=== PATIENT | female | born 1995 | race Caucasian/White ===

== ENCOUNTER 2021-08-05 11:48 | Emergency (ER) | payer OTHER, SELFPAY ==
[2021-08-05 12:08] VITALS: BP 116/66; PULSE 108; RESP 16; TEMP 36.7; O2SAT 100
--- NOTE | 2021-08-05 12:38 | ED.GENADULT ---
HPI - General Adult General Chief complaint: Upper Respiratory Infection Stated complaint: COUGH/CONGESTION/SORE THROAT Time Seen by Provider: 08/05/21 12:38 Source: patient Mode of arrival: ambulatory Limitations: no limitations History of Present Illness HPI narrative: 26-year-old female patient presents to the [facility] with complaints of cough, congestion, sore throat and fevers that started about 3 to 4 days ago. Patient is fully vaccinated against influenza and COVID. Patient states she has been trying to take some cjiq-yei-zaznegi medication however this morning she started coughing up some yellow sputum and decided to come in and be checked out. Denies any nausea, vomiting or diarrhea. Denies any chest pain or shortness of breath. Related Data Home Medications Medication Instructions Recorded Confirmed [facility] 08/05/21 Allergies Allergy/AdvReac Type Severity Reaction Status Date / Time No Known Allergies Allergy Verified 08/05/21 12:47 Review of Systems Review of Systems: CONSTITUTIONAL: Positive fever, chills, denies sweats. EYES: Denies visual changes, redness, or discharge. ENT: Positive rhinorrhea, congestion, sore throat, denies otalgia. CARDIOVASCULAR: Denies chest pain, palpitations, or edema. RESPIRATORY: Positive cough, denies dyspnea. GASTROINTESTINAL: Denies abdominal pain, nausea, vomiting, or diarrhea. GENITOURINARY: Denies dysuria or hematuria. SKIN: Denies rash or itching. MUSCULOSKELETAL: Denies back pain, joint pain, or myalgia. NEUROLOGIC: Denies headache, numbness, or weakness. PSYCHIATRIC: Denies anxiety or depression. PMFSH Comments At the time of my signature I agree with nursing past medical history, surgical, social, and family history. There is no relevant family history pertinent to the presenting complaint. Exam Narrative: GENERAL: ill-appearing, well-nourished, and in no acute distress. HEAD: Normocephalic, atraumatic. EYES: PERRLA and EOMI. ENT: Nares with erythema and edema noted bilaterally, no rhinorrhea or epistaxis. Mucous membranes moist. Posterior pharynx with no erythema, tonsillar lodgment, exudates or lesions present. NECK: Supple. No lymphadenopathy CHEST: Clear to auscultation. No respiratory distress. HEART: Regular rate and rhythm. No murmur heard. Normal peripheral pulses. ABDOMEN: Soft, nontender, nondistended, normal active bowel sounds. EXTREMITIES: Normal range of motion. No edema. SKIN: Warm, dry, no rash. NEURO: No focal deficits. Alert and oriented x3. Course Course Level of Care: Express Care Visit Vital Signs Vital signs: Vital Signs Temperature 36.7 C 08/05/21 12:08 Pulse Rate 108 H 08/05/21 12:08 Respiratory Rate 16 08/05/21 12:08 Blood Pressure 116/66 08/05/21 12:08 Pulse Oximetry 100 08/05/21 12:08 Temperature 36.7 C 08/05/21 12:08 Pulse Rate 108 H 08/05/21 12:08 Respiratory Rate 16 08/05/21 12:08 Blood Pressure 116/66 08/05/21 12:08 Pulse Oximetry 100 08/05/21 12:08 Vital signs reviewed Medical Decision Making Differential Diagnosis Differential Diagnosis: Differential diagnosis: Allergic rhinitis, chronic sinusitis, tonsillitis, acute sinusitis, infectious mononucleosis, seasonal influenza, pertussis, diphtheria, meningococcal disease, viral syndrome, viral bronchitis, RSV, COVID-19 Notify patient that we tested her today for strep, influenza and COVID she did come back positive for influenza A. Discussed with patient about the antiviral for influenza discussed with her the benefits as well as the risks and side effects. Patient has declined to do the antiviral at this time and states that she will just treat herself symptomatically. Discussed with patient I will give her a note to excuse her from work and school until Saturday. Patient verbalized understanding denies any other questions or concerns at this time. Vital Signs Vital Signs: Vital Signs Temperature 36.7 C 08/05/21 12:08 Pulse Ra
== END 2021-08-05 12:52 | disposition home or self-care (01) ==
PROVIDERS: Emergency Provider Nurse Practitioner Family
DX: J10.1 Influenza due to other identified influenza virus with other respiratory manifestations (principal); Z20.822 Contact with and (suspected) exposure to COVID-19
CPT/HCPCS: 87081; 87426; 87804; 87880; 99213; C9803; G0463

== ENCOUNTER 2021-11-15 12:15 | Emergency (ER) | payer OTHER, SELFPAY ==
--- NOTE | ~2021-11-15 | XR_ITS ---
EXAMINATION: XR foot LT min 3V DATE: 11/15/2021 12:38 INDICATION: Left fourth and fifth metatarsal pain. TECHNIQUE: 4 views of left foot were obtained. COMPARISON: None. FINDINGS: Bone alignment is normal. No fracture. There is mild osteoarthritis of first metatarsophala ngeal joint and interphalangeal joint. IMPRESSION: 1. Mild polyarticular osteoarthritis. Reviewed, dictated and finalized at location A.
--- NOTE | 2021-11-15 12:17 | ED.LOWEXIN ---
HPI - Extremity Injury (Lower) General Chief Complaint: Extremity Injury, Lower Stated Complaint: L FOOT PAIN Time Seen by Provider: 11/15/21 12:17 Source: patient Mode of arrival: ambulatory Limitations: no limitations History of Present Illness HPI Narrative: Mrs. Kelley is a 26 year old female patient presenting to the clinic today with c/o left foot pain x2 week. She reports she injured her foot when she was hiking in the [place] and tripped. States it removed partial 4th/5th toenail. Reports pain in between the 4th and 5th toe/dorsal foot. Related Data Home Medications Medication Instructions Recorded Confirmed [facility] 08/05/21 Allergies Allergy/AdvReac Type Severity Reaction Status Date / Time No Known Allergies Allergy Verified 08/05/21 12:47 Review of Systems Review of Systems: Pertinent positives per HPI. Patient denies any fever, chills, rash, headache, visual changes, dizziness, cough, runny nose, sore throat, shortness of breath, chest pain, palpitations, nausea, vomiting, diarrhea, constipation, abdominal pain, or any urinary issues. PMFSH Comments At the time of my signature, I reviewed and agree with the nursing past medical, surgical, social, and family history. There is no relevant family history pertinent to the patient complaint. Exam Narrative: General: Well-developed, well nourished, in no apparent distress Head: Normocephalic, atraumatic. Cardio: Regular rate and rhythm, s1 and s2 normal, no murmur appreciated. Resp: Clear to auscultation bilaterally, no rhonchi, rales, wheezing or rubs. Musculoskeletal: No deformity, tender to palpation over the 4th/5th metatarsals,mild pain with flexion and extension of the 5th toe, grossly normal range of motion, muscle strength strong and equal, peripheral pulse strong, no edema, no cyanosis, normal gait and station Course Course Emergency Course: Portions of this record may have been created with voice recognition software. Level of Care: Express Care Visit Vital Signs Vital signs: Vital Signs Temperature 37.1 C 11/15/21 12:28 Pulse Rate 96 11/15/21 12:28 Respiratory Rate 16 11/15/21 12:28 Blood Pressure 112/77 11/15/21 12:28 Pulse Oximetry 100 11/15/21 12:28 Oxygen Delivery Room Air 11/15/21 12:28 Temperature 37.1 C 11/15/21 12:28 Pulse Rate 96 11/15/21 12:28 Respiratory Rate 16 11/15/21 12:28 Blood Pressure 112/77 11/15/21 12:28 Pulse Oximetry 100 11/15/21 12:28 Oxygen Delivery Room Air 11/15/21 12:28 Vital signs reviewed MDM - Extremity Injury (Lower) MDM Narrative Medical decision making narrative: At the time of visit patient is resting comfortably on exam table. X-ray was negative for any fracture or malalignment of the left foot. I suspect the patient has a foot sprain. Supportive measures were discussed with the patient she voiced understanding of discharge instructions and agrees to treatment plan. Differential Diagnosis Differential diagnosis: Likely fracture of toe and other (Foot fracture, foot sprain) Imaging Data Radiologist's impression: [facility] [facility] [place] [address] XRay Report Signed Patient: Kay Kelley : 1995 MR#: [id number] Age/Sex: 26 / F Acct:[id number] Loc: [facility]? ? ADM Date: 11/15/21Attending Dr: Ordering Physician: Marcio Sparks APRN Date of Service: 11/15/21 Procedure(s): XR foot LT min 3V Accession Number(s): [id number] cc: Marcio Sparks APRN; CORN GRINDER PHYSICIAN~ EXAMINATION: XR foot LT min 3V DATE: 11/15/2021 12:38 INDICATION: Left fourth and fifth metatarsal pain. TECHNIQUE: 4 views of left foot were obtained. COMPARISON: None. FINDINGS: Bone alignment is normal. No fracture. There is mild osteoarthritis of first metatarsophalangeal joint and interphalangeal joint. IMPRESSION: 1. Mild polyarticular osteoarth
[2021-11-15 12:28] VITALS: BP 112/77; PULSE 96; RESP 16; TEMP 37.1; O2SAT 100
== END 2021-11-15 13:02 | disposition home or self-care (01) ==
PROVIDERS: Emergency Provider Nurse Practitioner Family
DX: S93.602A Unspecified sprain of left foot, initial encounter (principal); W18.40XA Slipping, tripping and stumbling without falling, unspecified, initial encounter; Y93.01 Activity, walking, marching and hiking
CPT/HCPCS: 73630; 99213; G0463

== ENCOUNTER 2022-05-11 08:30 | Outpatient (CLI) | payer OTHER, SELFPAY ==
[2022-05-11 11:17] LABS: Potassium 4.3 mmol/L (3.4-5.0)
[2022-05-11 11:19] LABS: Alanine Aminotransferase 14 U/L (6-35); Albumin Level 4.4 g/dL (3.5-5.1); Alkaline Phosphatase 49 U/L (38-126); Anion Gap 2 mmol/L (8-16); Aspartate Amino Transferase 20 U/L (14-36); Bilirubin,Total 0.8 mg/dL (0.2-1.3); Blood Urea Nitrogen 15 mg/dL (7-17); Calcium 9.1 mg/dL (8.4-10.2); Carbon Dioxide 28 mmol/L (22-30); Chloride 105 mmol/L (98-107); Cholesterol 206 mg/dL (0-200); Estimated Glomerular Filt Rate > 60; Glucose 95 mg/dL (65-110); HDL Direct 67 mg/dL; Sodium 135 mmol/L (137-145); Triglycerides 78 mg/dL (<150)
[2022-05-11 11:25] LABS: Basophils Percent Auto 0.9 % (0.2-1.2); Eosinophils Absolute Auto 0.1 K/mm3 (0-0.3); Eosinophils Percent Auto 3.5 % (0-4.4); Hematocrit 39.8 % (37.0-47.0); Hemoglobin 13.4 g/dL (12.0-15.0); Immature Granulocyte Absolute 0.01 K/mm3 (0.00-0.031); Immature Granulocyte Percent A 0.3 % (0-0.5); Lymphocytes Absolute Auto 1.28 K/mm3 (0.9-3.2); Lymphocytes Percent Auto 40.4 % (18.3-44.2); Mean Corpuscular HGB Conc 33.7 g/dl (32-36); Mean Corpuscular Hemoglobin 29.9 pg (26-34); Mean Corpuscular Volume 88.8 fl (80-100); Mean Platelet Volume 10.2 fl (7.4-10.4); Monocytes Absolute Auto 0.2 K/mm3 (0.1-0.6); Monocytes Percent Auto 6.6 % (2.6-8.5); Neutrophils Absolute Auto 1.5 K/mm3 (1.3-6.7); Neutrophils Percent Auto 48.3 % (45.5-73.1); Platelet Count Result 303 k/mm3 (150-375); Red Blood Count 4.48 M/mm3 (4.2-5.4); Red Cell Distribution Width 12.4 % (11.5-14.5); White Blood Count 3.2 K/mm3 (4.5-10.0)
[2022-05-11 11:29] LABS: LDL Cholesterol Direct 96 mg/dL
[2022-05-11 11:46] LABS: Thyroid Stimulating Hormone 0.937 uIU/mL (0.465-4.680)
== END 2022-05-11 08:31 | disposition home or self-care (01) ==
LOC: ANHGOSHLAB 08:31
PROVIDERS: PCP Family Medicine; Visit Provider Nurse Practitioner
DX: Z13.228 Encounter for screening for other metabolic disorders (principal); Z13.220 Encounter for screening for lipoid disorders
CPT/HCPCS: 36415; 80053; 80061; 84443; 85025

== ENCOUNTER 2022-09-18 10:28 | Outpatient (CLI) | payer OTHER, SELFPAY ==
[2022-09-20 15:38] LABS: NIL 0.02 IU/mL; Quantiferon TB Plus, 1T NEGATIVE (NEGATIVE); TB2-NIL <0.00 IU/mL
== END 2022-09-18 10:29 | disposition home or self-care (01) ==
LOC: ANHGOSHLAB 10:29
PROVIDERS: PCP Family Medicine; Visit Provider Family Medicine
DX: Z11.1 Encounter for screening for respiratory tuberculosis (principal)
CPT/HCPCS: 36415; 86480

== ENCOUNTER 2023-10-09 09:03 | Emergency (ER) | payer OTHER, SELFPAY ==
[2023-10-09 09:16] VITALS: BP 116/68; PULSE 68; RESP 16; TEMP 36.8; O2SAT 100
--- NOTE | 2023-10-09 09:20 | ED.FEMALEGU ---
HPI - Female Genitourinary General Chief complaint: Urogenital-Female Stated complaint: UTI SYMPTOMS Time Seen by Provider: 10/09/23 09:20 Source: patient and RN notes reviewed Mode of arrival: ambulatory Limitations: no limitations History of Present Illness HPI Narrative: 28 year old female presents with complaints mild pressure with urination, urgency, and frequency for 4 days. Denies hematuria, nausea, vomiting, abdominal pain, flank pain, constipation, diarrhea, fevers or chills. 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 She denies any concerns for STDs. She states she took some at home uti tests that came back inconclusive. Related Data Home Medications Medication Instructions Recorded Confirmed cetirizine 10 mg tablet 10 mg PO DAILY 10/09/23 10/09/23 Allergies Allergy/AdvReac Type Severity Reaction Status Date / Time No Known Allergies Allergy Verified 10/09/23 09:09 Review of Systems Review of Systems: CONSTITUTIONAL: Denies body aches, fever, chills, or sweats. CARDIOVASCULAR: Denies chest pain, palpitations, or edema. RESPIRATORY: Denies cough or dyspnea. GASTROINTESTINAL: Denies abdominal pain, nausea, vomiting, or diarrhea. GENITOURINARY: Reports dysuria, frequency, urgency. Denies hematuria, flank pain SKIN: Denies rash, itching, or wounds. MUSCULOSKELETAL: Denies back pain or myalgia. [facility] Past Medical History Medical History Allergies Surgical History Surgical History H/O wisdom tooth extraction Family History Family History Grandparent Diabetes mellitus Anxiety Mother Depression Anxiety Father Depression Social History Social History (Updated 07/11/22 @ 15:46 by Irene Fairbanks DO) Smoking status: Never smoker Alcohol intake: current Alcohol use details: 6-8/month Substance use type: does not use Lack of Transportation: No Lack of Food: Never True Current Housing: I Have Housing Concerned About Future Housing: No Difficulty Paying Gas/Electric Bills: No Difficulty Paying for Meds: No Currently Unemployed: No Education: Master's Degree or Higher Difficulty w/ Childcare or Family Care: No Comments At time of signature, I have reviewed and agree with nursing past medical, surgical, social and family history unless otherwise noted. Please see nursing chart for further information. There is no relevant family history pertinent to the presenting complaint Exam Narrative: GENERAL: Well-appearing and in no acute distress. EYES: EOMI. NECK: Normal AROM. Supple. CHEST: No respiratory distress. Clear to auscultation. HEART: Regular rate and rhythm. ABDOMEN: Soft, nontender, nondistended, normal active bowel sounds. No CVA tenderness MUSCULOSKELETAL: No bony tenderness. SKIN: Warm, dry, no rash. NEURO: No focal deficits. Alert and oriented x3. Gait steady. PSYCH: Normal affect. No signs of depression or anxiety. Course Course Emergency Course: Patient is aware of diagnosis, understands and agrees to treatment plan. Anticipatory guidance given. Patient agrees to follow-up as directed and is aware of reasons to seek care at the emergency department. Portions of this record may have been created with voice recognition software Level of Care: Express Care Visit Vital Signs Vital signs: Vital Signs Temperature 98.3 F 10/09/23 09:16 Pulse Rate 68 10/09/23 09:16 Respiratory Rate 16 10/09/23 09:16 Blood Pressure 116/68 10/09/23 09:16 Pulse Oximetry 100 10/09/23 09:16 Temperature 98.3 F 10/09/23 09:16 Pulse Rate 68 10/09/23 09:16 Respiratory Rate 16 10/09/23 09:16 Blood Pressure 116/68 10/09/23 09:16 Pulse Oximetry 100 10/09/23 09:16 Reviewed MDM - Female Genitourinary MDM Narrative
[2023-10-09 09:27] LABS: EDUAAPPEAR Clear; EDUABILI Negative; EDUABLOOD 1+; EDUACOLOR1 Yellow; EDUAGLUCOSE Negative; EDUAKETONE Negative; EDUALEUKO Trace; EDUANITRATE Negative; EDUAPH 5.5; EDUAPROTEIN Negative; EDUASPGRAVITY 1.005; EDUAUROBILI 0.2
== END 2023-10-09 09:46 | disposition home or self-care (01) ==
PROVIDERS: Emergency Provider Nurse Practitioner Family; PCP Family Medicine
DX: R30.0 Dysuria (principal)
CPT/HCPCS: 81003; 81025; 87086; 99213; G0463

== ENCOUNTER 2024-07-03 16:44 | Emergency (ER) | payer OTHER, SELFPAY ==
[2024-07-03 17:01] VITALS: BP 107/65; PULSE 74; RESP 18; TEMP 36.6; O2SAT 100
[2024-07-03 17:08] LABS: EDUAAPPEAR Clear; EDUABILI Negative (Negative); EDUABLOOD Trace (Negative); EDUACOLOR1 Orange; EDUAGLUCOSE Negative (Negative); EDUAKETONE Negative (Negative); EDUALEUKO Trace (Negative); EDUANITRATE Negative (Negative); EDUAPROTEIN Negative (Negative); EDUASPGRAVITY 1.005; EDUAUROBILI 0.2
--- NOTE | 2024-07-03 17:33 | ED_ITS ---
HPI - Female Genitourinary General Chief complaint: Urogenital-Female Stated complaint: UTI SYMPTOMS Time Seen by Provider: 07/03/24 16:55 Source: patient and RN notes reviewed Mode of arrival: ambulatory Limitations: no limitations History of Present Illness HPI Narrative: 29-year-old female presents Express Care complaining of pain with urination and foul-smelling urine for 1 day. Patient also reports having lower back pain. Patient denies any fevers, chills, abdominal pain, blood in her urine, or any chance of being . Patient says she took a dose azos this morning for her dysuria symptom with relief. Patient has a history of urinary tract infections. Related Data Home Medications ?Medication ?Instructions ?Recorded ?Confirmed ?Last Taken ?Type cetirizine 10 mg tablet 10 mg PO DAILY 10/09/23 07/03/24 Unknown History Allergies Allergy/AdvReac Type Severity Reaction Status Date / Time No Known Allergies Allergy Verified 07/03/24 16:56 Review of Systems Review of Systems: CONSTITUTIONAL: Denies fever, chills, or sweats. EYES: Denies visual changes, redness, or discharge. ENT: Denies rhinorrhea, congestion, sore throat, or otalgia. CARDIOVASCULAR: Denies chest pain, palpitations, or edema. RESPIRATORY: Denies cough or dyspnea. GASTROINTESTINAL: Denies abdominal pain, nausea, vomiting, or diarrhea. GENITOURINARY: Positive for dysuria and foul-smelling urine. Negative for hematuria. SKIN: Denies rash or itching. MUSCULOSKELETAL: Positive for lower back pain. Negative for joint pain, or myalgia. NEUROLOGIC: Denies headache, numbness, or weakness. PSYCHIATRIC: Denies anxiety or depression. All other systems reviewed are negative, except as documented in HPI. [facility] Past Medical History Medical History Allergies Surgical History Surgical History H/O wisdom tooth extraction Family History Family History Grandparent Diabetes mellitus Anxiety Mother Depression Anxiety Father Depression Social History Social History Smoking status: Never smoker Alcohol intake: current Alcohol use details: 6/month Substance use: never Substance use type: does not use Do You Feel Safe in your Home?: Yes Lack of Transportation: No Lack of Food: Never True Current Housing: I Have Housing Concerned About Future Housing: No Difficulty Paying Gas/Electric Bills: No Difficulty Paying for Meds: No Currently Unemployed: No Education: Master's Degree or Higher Difficulty w/ Childcare or Family Care: No Occupation/Education: occupation 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 There is no relevant family history pertinent to the patient complaint. Exam Narrative: GENERAL: This is a well-nourished, well-developed adult, in no apparent distress. They are non ill-appearing, nontoxic appearing. HEAD: normocephalic, atraumatic. EYES: Sclera clear/white. Vision is grossly intact. EARS: External ears normal, Hearing grossly intact. NOSE: External nose normal THROAT: Mucous membranes moist NECK: Normal range of motion CARDIOVASCULAR: Regular rate and rhythm without murmurs, gallops, or rubs. RESPIRATORY: Clear to auscultation. Breath sounds equal bilaterally. No wheezes, rales, or rhonchi. GASTROINTESTINAL: Abdomen soft, non-tender, nondistended. Bowel sounds are active. No hepato-splenomegaly, or palpable masses. No guarding. SKIN: warm, Dry, intact with no suspicious lesions or rash, good texture and turgor. NEURO: awake, alert, and oriented to person, place and time. There were no obvious focal neurologic abnormalities. EXTREMITIES: No joint tenderness, effusion, or edema noted. BACK: Nontender without deformity. No CVA tenderness. Course Course Level of Care: Express Care Visit Vital Signs Vital signs: Vital Signs Temperature 97.8 F 07/03/24 17:01 Pulse Rate 74 07/03/24 17:01 Respiratory Rate 18 07/03/24 17:01 Blood Pressure 107/65 07/03/24 17:01 Pulse Oximetry 100 07/03/24 17:01 Temperature 97.8 F 07/03/24 17:01 Pulse Rate 74 07/03/24 17:01 Respiratory Rate 18 07/03/24 17:01 Blood Pressure 107/65 07/03/24 17:01 Pulse Oximetry 100 07/03/24 17:01 Reviewed MDM - Female Genitourinary MDM Narrative Medical decision making narrative: Patient's urine dipstick showed leukocytes and blood present. The result may have been altered from the Azos the patient took earlier today as her urine color was orange. Given the patient's symptoms will treat empirically for urinary tract infection with Macrobid. Urine culture is pending. Discussed physical exam findings. Advised supportive measures and signs/symptoms to go to the ER. Pt is appropriate for outpt treatment and f/u. Differential Diagnosis Differential diagnosis: Likely urinary tract infection, cystitis and other (Dysuria) Lab Data Attestation: I reviewed the patient's lab results. Labs: Lab Results 07/03/24 Range/Units 17:05 POC Urine Color [place] POC Urine Clarity Clear POC Urine pH 6.0 POC Ur Specif [place] 1.005 POC Urine Protein Negative (Negative) POC Ur Glucose (UA) Negative (Negative) POC Urine Ketones Negative (Negative) POC Urine Blood Trace (Negative) POC Urine Nitrite Negative (Negative) POC Urine Bilirubin Negative (Negative) POC Urine Urobilinogen 0.2 POC U Leukocyte Esteras Trace (Negative) Critical Care Time Critical Care Time Critical Care Time: No Discharge Plan Discharge Clinical Impression: Dysuria Patient Disposition: Home Condition: Stable Instructions: Antibiotic Form, Urinary Tract Infection in Women (ED) Additional Instructions: Take the antibiotic as prescribed The urine will be sent of for a culture to identify what type of bacteria is causing your infection. If the culture shows that the antibiotic will not get rid of your infection, you will be notified and a new antibiotic will be called in for you. Increase water intake you will need to follow up with your PCP, call to schedule an appointment. Go to the ER for any worsening symptoms or concerns Patient Language: Macedonian Prescriptions: New nitrofurantoin monohyd/m-cryst [Macrobid] 100 mg capsule 100 mg PO Q12H 5 Days Qty: 10 0RF Rx Instructions: must administer with a meal/food No Action cetirizine 10 mg Tablet 10 mg PO DAILY Follow-up/Referrals: Irene Fairbanks DO [Primary Care Provider] - Time of Disposition: 17:10
== END 2024-07-03 17:15 | disposition home or self-care (01) ==
PROVIDERS: PCP Family Medicine
DX: R30.0 Dysuria (principal)
CPT/HCPCS: 81003; 87086; 99213; G0463

== ENCOUNTER 2024-07-09 08:29 | Outpatient (CLI) | payer OTHER, SELFPAY ==
--- OUTSIDE RECORDS SUMMARY | 2024-07-09 08:47 | XMS_ITS | Clinical Summary ---
Author Organization [facility] Address [address] [place] [address] Care Team Providers Care Cra Officer Name Role Phone Som Smyth MD Primary Care Provider [phone] Source Comments [facility] [employer],non-owned Affiliates and Associated Physician Practices is amultiple site organization consisting of ambulatory clinics and hospital sitesin [place], [place], [place] and [place]. This disclosure is being madepursuant to the Care Everywhere program and may not contain all information available regarding this patient. Last updated 17.[facility] [employer] Allergies No known active allergies Medications * Be aware that medications may not be up to date on this document. Alwaysverify current medications with the patient. Norethin Pasquale-Eth Estrad-FE ( PO) Active Cetirizine HCl (ZYRTEC ALLERGY PO) Active norgestim-eth estrad triphasic (TRI-SPRINTEC) 0.18/0.215/0.25 MG-35 MCG tablet 03/25/2019 Ac tive cetirizine (ZYRTEC ALLERGY) 10 MG gel capsule Take 10 mg by mouth once daily Active Family History Relation Name Status Comments Father Mother Alive Social History Tobacco Use Types Packs/Day Years Used Date Smoking Tobacco: Never Smokeless Tobacco: Never Comments No Sex and Gender Information Value Date Recorded Sex Assigned at Not on file Legal Sex Female 10:49 AM CDT Gender Identity Not on file Sexual Orientation Not on file Last Filed Vital Signs Vital Sign Reading Time Taken Comments Blood Pressure 100/68 02/20/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 Pulse 75 02/20/2021 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 Temperature 37.2 C (99 F) 02/20/2021 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 Respiratory Rate 16 02/20/2021 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 Oxygen Saturation 97% 02/20/2021 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 Inhaled Oxygen Concentration - - Weight 61.2 kg (135 lb) 02/20/2021 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 Height 162.6 cm (5' 4 ) 02/20/2021 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 Body Mass Index 23.17 02/20/2021 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 Plan of Treatment Health Maintenance Due Date Last Done Comments PAP SMEAR 1995 HIV SCREENING 2009 HEPATITIS C SCREENING 02/11/2012 DTAP/TDAP/TD VACCINES (1 - Tdap) 2013 HEPATITIS B VACCINE (1 of 3 - 19+ 3-dose series) 2013 COVID-19 VACCINE (1 - 2023-2 5 season) 2023 DEPRESSION SCREENING 03/25/2024 INFLUENZA VACCINE (Season Ended) 2024 11/24/19 20 ZOSTER VACCINE (1 of 2) 02/16/2044 HIB VACCINE Aged Out No longer eligi ble based on patient's age to complete this topic HPV VACCINE Aged Out No longer eligi ble based on patient's age to complete this topic MENINGOCOCCAL (Group B) VACC INE SHARED DECISION-MAKING Aged Out No longer eligibl e based on patient's age to complete this topic MENINGOCOCCAL GROUPS A/C/Y/W VACCINE Aged Out No longer eligible b ased on patient's age to complete this topic PNEUMOCOCCAL VACCINE Aged Out No long er eligible based on patient's age to complete this topic Insurance [facility] Care Teams Cra Officer Relationship Specialty Start Date End Date Som Smyth MD [address] [place] [id number] PCP - General Family Medicine 12/26/17
[2024-07-09 12:59] LABS: Basophils Percent Auto 0.8 % (0.2-1.2); Eosinophils Absolute Auto 0.1 K/mm3 (0-0.3); Eosinophils Percent Auto 2.3 % (0-4.4); Hematocrit 41.7 % (37.0-47.0); Hemoglobin 13.2 g/dL (12.0-15.0); Immature Granulocyte Absolute 0.01 K/mm3 (0.00-0.031); Immature Granulocyte Percent A 0.3 % (0-0.5); Lymphocytes Absolute Auto 1.33 K/mm3 (0.9-3.2); Lymphocytes Percent Auto 33.8 % (18.3-44.2); Mean Corpuscular HGB Conc 31.7 g/dl (32-36); Mean Corpuscular Hemoglobin 29.9 pg (26-34); Mean Corpuscular Volume 94.3 fl (80-100); Mean Platelet Volume 10.4 fl (7.4-10.4); Monocytes Absolute Auto 0.3 K/mm3 (0.1-0.6); Monocytes Percent Auto 6.4 % (2.6-8.5); Neutrophils Absolute Auto 2.2 K/mm3 (1.3-6.7); Neutrophils Percent Auto 56.4 % (45.5-73.1); Platelet Count Result 333 k/mm3 (150-375); Red Blood Count 4.42 M/mm3 (4.2-5.4); Red Cell Distribution Width 12.4 % (11.5-14.5); White Blood Count 3.9 K/mm3 (4.5-10.0)
[2024-07-09 13:29] LABS: Hemoglobin A1C 5.2 % (<5.7)
[2024-07-09 13:44] LABS: Alanine Aminotransferase 17 U/L (6-35); Albumin Level 4.4 g/dL (3.5-5.1); Alkaline Phosphatase 50 U/L (38-126); Anion Gap 7 mmol/L (4-12); Aspartate Amino Transferase 44 U/L (14-36); Bilirubin,Total 0.7 mg/dL (0.2-1.3); Blood Urea Nitrogen 14 mg/dL (7-17); Calcium 9.4 mg/dL (8.4-10.2); Carbon Dioxide 30 mmol/L (22-30); Chloride 103 mmol/L (98-107); Cholesterol 191 mg/dL (0-200); Estimated Glomerular Filt Rate > 60; Glucose 87 mg/dL (65-110); HDL Direct 61 mg/dL; Potassium 4.3 mmol/L (3.4-5.0); Sodium 140 mmol/L (137-145); Triglycerides 54 mg/dL (<150)
[2024-07-09 13:55] LABS: LDL Cholesterol Direct 93 mg/dL
[2024-07-09 14:12] LABS: Thyroid Stimulating Hormone 0.533 uIU/mL (0.465-4.680)
[2024-07-09 20:36] LABS: Free T4 Free Thyroxine 1.04 ng/dL (0.78-2.19); Vitamin D 25 Hydroxy 27.2 ng/mL
== END 2024-07-09 08:30 | disposition home or self-care (01) ==
LOC: ANHGOSHLAB 08:30
PROVIDERS: PCP Family Medicine; Visit Provider Family Medicine
DX: R53.83 Other fatigue (principal); E55.9 Vitamin D deficiency, unspecified; Z13.220 Encounter for screening for lipoid disorders; R73.9 Hyperglycemia, unspecified; Z00.00 Encounter for general adult medical examination without abnormal findings
CPT/HCPCS: 36415; 80053; 80061; 82306; 83036; 84439; 84443; 85025

== ENCOUNTER 2025-03-22 11:34 | Outpatient (CLI) | payer OTHER, SELFPAY ==
--- OUTSIDE RECORDS SUMMARY | 2025-03-22 12:14 | XMS_ITS | Clinical Summary ---
Author Organization [facility] Address [address] [place] [address] Care Team Providers Care Shelter Advocate Name Role Phone Som Smyth MD Primary Care Provider [phone] Source Comments [facility] [employer],non-owned Affiliates and Associated Physician Practices is amultiple site organization consisting of ambulatory clinics and hospital sitesin [place], [place], [place] and [place]. This disclosure is being madepursuant to the Care Everywhere program and may not contain all information available regarding this patient. 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 Pulse 75 02/20/2021 9:24 AM GLUE SPREADER Temperature 37.2 C (99 F) 02/20/2021 9:24 AM GLUE SPREADER Respiratory Rate 16 02/20/2021 9:24 AM GLUE SPREADER Oxygen Saturation 97% 02/20/2021 9:24 AM GLUE SPREADER Inhaled Oxygen Concentration - - Weight 61.2 kg (135 lb) 02/20/2021 9:24 AM GLUE SPREADER Height 162.6 cm (5' 4) 02/20/2021 9:24 AM GLUE SPREADER Body Mass Index 23.17 02/20/2021 9:24 AM GLUE SPREADER Plan of Treatment Health Maintenance Due Date Last Done Comments HIV SCREENING 2009 HEPATITIS C SCREENING 02/11/2012 DTAP/TDAP/TD VACCINES (1 - Tdap) 2013 HEPATITIS B VACCINE (1 of 3 - 19+ 3-dose series) 2013 HPV VACCINE (1 - 3-dose SCDM series) 2021 DEPRESSION SCREENING 03/25/2024 COVID-19 VACCINE (1 - 2024-2 6 season) 2024 INFLUENZA VACCINE (#1) 2024 11/24/2019 ZOSTER VACCINE (1 of 2) 02/16/2044 HIB [...] Insurance [facility] Care Teams Shelter Advocate Relationship Specialty Start Date End Date Som Smyth MD [address] [place] [id number] PCP - General Family Medicine 12/26/17
[2025-03-22 14:00] LABS: Alanine Aminotransferase 15 U/L (6-35); Albumin Level 4.3 g/dL (3.5-5.1); Alkaline Phosphatase 46 U/L (38-126); Anion Gap 4 mmol/L (4-12); Aspartate Amino Transferase 25 U/L (14-36); Bilirubin,Total 0.7 mg/dL (0.2-1.3); Blood Urea Nitrogen 9 mg/dL (7-17); Calcium 9.4 mg/dL (8.4-10.2); Carbon Dioxide 26 mmol/L (22-30); Chloride 108 mmol/L (98-107); Estimated Glomerular Filt Rate > 60; Glucose 87 mg/dL (65-110); Potassium 4.0 mmol/L (3.4-5.0); Sodium 138 mmol/L (137-145); Total Protein 7.1 g/dL (6.3-8.2)
== END 2025-03-22 11:35 | disposition home or self-care (01) ==
LOC: ANHGOSHLAB 11:36
PROVIDERS: PCP Family Medicine; Visit Provider Family Medicine
DX: R74.8 Abnormal levels of other serum enzymes (principal)
CPT/HCPCS: 36415; 80053